=== PATIENT | male | born 1995 | race Caucasian/White ===

== ENCOUNTER 2016-10-25 22:41 | Emergency (ER) | payer BC ==
[~2016-10-25] VITALS: Ht 188 cm; Wt 88.0 kg
[~2016-10-25 22:41] MED LIST: CLIN150 PO; DAYT20DI TD; PRED20 PO
[2016-10-25 22:43] VITALS: BP 158/86; PULSE 66; RESP 16; TEMP 98.9; O2SAT 100
--- NOTE | 2016-10-26 00:25 | PD ---
HPI Chief Complaint: Oral / Dental Pain or Problem Time Seen by Provider: 00:17 Travel History International Travel<30 days: No Contact w/Intl Traveler<30days: No Traveled to known affect area: No History of Present Illness HPI 21-year-old male presents for evaluation after mechanical fall. Pressure over the patient was riding his long board when he hit a bump and fell, landing on his face. Denies loss of consciousness. He denies generalized facial pain, especially in the upper teeth. He also has pain to the medial left hand. Pain is aching and worse with palpation. He does endorse some fracturing to the left maxillary central and lateral incisors. Denies any headache, confusion or amnesia, nausea or vomiting, loss of consciousness, neck or back pain. He has no other complaints. [facility] Social History Alcohol Use: No Tobacco Use: No Substance Use: No Allergies-Medications (Allergen,Severity, Reaction): Coded Allergies: Bactrim (Verified Allergy, Severe, Rash, 10/26/16) Uncoded Allergies: apples (Adverse Reaction, Severe, 10/27/15) Reported Meds & Prescriptions Reported Meds & Active Scripts Active Reported Cephalexin 500 Mg Cap 500 Mg PO Q12H Review of Systems Except as stated in HPI: all other systems reviewed are Neg Physical Exam Narrative GENERAL: Well-nourished male in no acute distress SKIN: Warm and dry. Abrasions to the face and lips. Abrasions to the left hand. HEAD: Atraumatic. Normocephalic. EYES: Pupils equal and round. No scleral icterus. No injection or drainage. ENT: Fracture and left maxillary central and lateral incisors. The rest of the teeth Appear to be intact. None of the teeth are loose to palpation. NECK: Trachea midline. No JVD. CARDIOVASCULAR: Regular rate and rhythm. No murmur appreciated. RESPIRATORY: No accessory muscle use. Clear to auscultation. Breath sounds equal bilaterally. MUSCULOSKELETAL: No obvious deformities. Tender to palpation and medial left hand. Full range of motion of the hands, neck, arms. NEUROLOGICAL: Awake and alert. No obvious cranial nerve deficits. Motor grossly within normal limits. Normal speech. Data Data Last Documented VS Vital Signs Date Time Temp Pulse Resp B/P Pulse Ox O2 Delivery O2 Flow Rate FiO2 10/25/16 22:43 98.9 66 16 158/[address] Facial Bones W/O Iv Cont (10/26/16 ) Hand, Complete ([id number]) (10/26/16 ) Acetamin-Codeine 300-30 Mg (Tylenol-Code (10/26/16 00:30) MDM Medical Decision Making Medical Screen Exam Complete: Yes Emergency Medical Condition: Yes Medical Record Reviewed: Yes Differential Diagnosis Dental fracture, facial fracture, contusion, sprain, strain, abrasion Narrative Course CT of the facial bones and left hand x-ray have been ordered. X-ray and CT imaging is negative. The patient is encouraged to follow up with a dentist and have the dental fractures repaired. He is currently on Keflex for a different issue needs encouraged to continue using this Prophylactically. He is being discharged with ibuprofen for pain control. Diagnosis Primary Impression: Tooth fractures Qualified Code: S02.5XXA - Closed fracture of tooth, initial encounter Additional Impression: Multiple abrasions Additional Instructions: Follow-up with a dentist for definitive therapy. Ibuprofen for pain. Continue taking Keflex. Keep the wound clean with soap and water and apply antibiotic cream daily. Soft diet. Return for any emergent medical conditions. Med/Other Pt SpecificInfo: Prescription(s) given Scripts Ibuprofen 800 Mg [id number] Mg PO Q6HR PRN (PAIN) #40 TAB Ref 0 Prov:Nina Garsia MD 10/26/16 Disposition: 01 DISCHARGE HOME Condition: Stable Kenney Browne Oct 26, 2016 00:25
[2016-10-26] MEDS ORDERED: ACETAMINOPHEN/CODEINE 300 MG/30 MG TAB PO ONE (00:30)
[2016-10-26] MEDS ORDERED: CEPH500C PO (01:05)
--- NOTE | 2016-10-26 01:06 | RADRPT ---
EXAM DATE/TIME: 10/26/2016 00:37 [facility] COMPARISON: No previous studies available for comparison. INDICATIONS : Skateboarding accident. Mouth pain. RADIATION DOSE: 36.93 CTDIvol (mGy) MEDICAL HISTORY : None SURGICAL HISTORY : None. ENCOUNTER: Initial ACUITY: 1 day PAIN SCORE: 6/10 LOCATION: facial TECHNIQUE: Volumetric scanning of the facial bones was performed. Using automated exposure control and adjustme nt of the mA and/or kV according to patient size, radiation dose was kept as low as reasonably achiev able to obtain optimal diagnostic quality images. FINDINGS: ORBITS: The orbital and infraorbital osseous structures are intact. The retroconal structures have a normal configuration. No radiopaque foreign bodies are seen. NASAL BONE: The nasal bone and maxillary spine are intact ZYGOMATIC ARCHES: Symmetric without evidence of fracture. SINUSES: The maxillary, ethmoid and frontal sinuses are intact. No air-fluid levels seen although there is mi nimal mucosal thickening in the dependent portion of both maxillary and sphenoid sinuses. NASAL CAVITY: The nasal septum is intact and midline. The lacrimal ducts are intact. SOFT TISSUES: No radiopaque foreign bodies seen. No soft-tissue swelling is seen. INTRACRANIAL: No intracranial air seen. CRIBIFORM PLATE: Grossly intact. CONCLUSION: Normal examination except for minimal mucoperiosteal thickening in the dependent portion of the maxil astrid and sphenoidal sinuses. Joseph Ruelas MD on October 26, 2016 at 1:04 Board Certified Radiologist. This report was verified electronically.
--- NOTE | 2016-10-26 01:12 | RADRPT ---
EXAM DATE/TIME: 10/26/2016 00:59 [facility] COMPARISON: No previous studies available for comparison. INDICATIONS : Left fifth metacarpal pain, fall off skateboard tonight. MEDICAL HISTORY : None. SURGICAL HISTORY : None. ENCOUNTER: Initial ACUITY: 1 day PAIN SCORE: 4/10 LOCATION: Left hand. FINDINGS: Three view examination of the left hand demonstrates no soft tissue swelling, dislocation, or fractur e. The carpal bones appear intact. The interphalangeal and metacarpophalangeal joints are intact. Bony mineralization is normal. CONCLUSION: Unremarkable examination of the left hand. Joseph Ruelas MD on October 26, 2016 at 1:11 Board Certified Radiologist. This report was verified electronically.
[2016-10-26] MEDS ORDERED: IBUP800T23 PO (01:20)
== END 2016-10-26 01:52 | disposition home or self-care (01) ==
LOC: NEPD 22:41
DX: S02.5XXA Fracture of tooth (traumatic), initial encounter for closed fracture (principal); Y93.51 Activity, roller skating (inline) and skateboarding; V00.131A Fall from skateboard, initial encounter
CPT/HCPCS: 70486; 73130